=== PATIENT | female | born 1995 | race Caucasian/White ===

== ENCOUNTER 2016-12-09 22:14 | Emergency (ER) | payer MEDICAID, OTHER ==
[2016-12-09 23:44] VITALS: BP 122/61
--- NOTE | 2016-12-10 01:39 | ED Physician Documentation ---
Abdominal Pain - HISTORIAN Historian: patient - HPI Stated Complaint: States experiencing symptoms (nausea/heartburn/ cramping) Chief Complaint: Abdominal Pain Additonal Information: left lower quadrant pain x 1 week. Last period 1 week ago. 3 neg preg tests at home, 1 ? pos. Hx of left tubal preg. Onset: days ago (7) Duration: persistent Timing: still present Context: denies: out of country travel, bad food, recent trauma Severity: moderate Quality: aching, dull Front/Back of Body, Lg (Color): 1 - pain Associated Symptoms: nausea Exacerbated by: nothing Relieved by: other Further Comments: no - ROS CONST: no problems GI/: constipation CVS/RESP: none EYES/ENT: none MS/SKIN/LYMPH: none NEURO/PSYCH: none - SOCIAL HX Smoking History: cigarettes Alcohol Use: none Drug Use: none - FAMILY HX Family History: no significant history - PAST HX Past History: none Ischemic Bowel Risk Factors: none Other History: ectopic Surgeries/Procedures: other (tubal surgery) Immunizations: referred to PCP Home Medications: Ambulatory Orders Medication Instructions Recorded NK [NK] 12/09/16 Allergies/Adverse Reactions: Allergies Allergy/AdvReac Type Severity Reaction Status Date / Time acetaminophen AdvReac Vomiting Verified 12/09/16 22:32 [From Tylenol-Codeine #3] codeine phosphate AdvReac Vomiting Verified 12/09/16 22:32 [From Tylenol-Codeine #3] - VITAL SIGNS Vital Signs: Vital Signs Temp Pulse Resp BP Pulse Ox 98.4 F 114 H 18 122/61 98 12/09/16 22:14 12/09/16 23:43 12/09/16 23:43 12/09/16 23:43 12/09/16 22:14 - REVIEWED ASSESSMENTS Nursing Assessment Reviewed: Yes Vitals Reviewed: Yes Progress - Results/Orders Results/Orders: ucg neg - Progress Progress: pt stable entire time in er Critical Care Note - Critical Care Note Total Time (mins): 0 ED Results Lab/Radiology - Lab Results Lab Results: ucg neg - Radiology Radiology Impressions: none ordered - Orders Orders: ED Orders Category Date Time Status HCG QUANTITATIVE Routine Lab 12/09/16 23:30 Received HCG [URINE HCG] Routine Lab 12/09/16 22:44 Ordered URINALYSIS Routine Lab 12/09/16 22:29 Ordered Abdominal Pain Physical Exam - Physical Exam General Appearance: mild distress EENT: eye inspection normal, ENT inspection normal, pharynx normal, no signs of dehydration, DOUG, no nystagmus, TM's nml NECK: normal inspection, thyroid normal, supple RESPIRATORY: no resp distress, chest non-tender, breath sounds normal CVS: reg rate & rhythm, heart sounds normal, equal pulses, no murmur, no gallop , PMI nml, no JVD ABDOMEN: soft, normal bowel sounds, tenderness (left upper and lower quadrants) MALE GENITAL: normal genitalia BACK: normal inspection, no CVA tenderness SKIN: warm/dry, normal color EXTREMITIES: non-tender, normal range of motion, no evidence of injury, no edema NEURO: oriented X3, CN's nml as tested, motor nml, sensation nml, mood/affect nml, cognition normal Vital Signs: Vital Signs Temp Pulse Resp BP Pulse Ox 98.4 F 114 H 18 122/61 98 12/09/16 22:14 12/09/16 23:43 12/09/16 23:43 12/09/16 23:43 12/09/16 22:14 Discharge Clincal Impression: Abdominal pain Qualifiers: Abdominal location: left lower quadrant Qualified Code(s): R10.32 - Left lower quadrant pain Referrals: Karen Dunbar MD [Primary Care Provider] - 2 Days Home Medications: Ambulatory Orders NK [NK] 12/09/16 Comments: pt. wishes quant hcg - drawn Condition: Stable Disposition: 01 HOME, SELF-CARE Decision to Admit: NO Decision Time: 23:40
[2016-12-10 06:44] LABS: APPEARANCE,URINE CLEAR (CLEAR); COLOR,URINE AMBER (YELLOW); OCCULT BLOOD,URINE NEGATIVE (NEGATIVE); PH URINE 5.5 (5.0 - 8.0); URINE HCG NEGATIVE (NEGATIVE); UROBILINOGEN URINE 0.2 Eu (0.2-1.0)
== END 2016-12-09 23:15 | disposition home or self-care (01) ==
LOC: ED 22:14
DX: R10.32 Left lower quadrant pain (principal)
CPT/HCPCS: 81002; 81025; 84702

== ENCOUNTER 2018-01-03 17:33 | Emergency (ER) | payer BC, OTHER ==
--- NOTE | 2018-01-03 18:17 | ED Physician Documentation ---
Abdominal Pain - HISTORIAN Historian: patient - HPI Stated Complaint: abd pain Chief Complaint: Abdominal Pain Onset: hours (7 hours ago) Duration: constant Timing: still present Context: denies: out of country travel, bad food Severity: moderate Quality: aching, stabbing Associated Symptoms: nausea. denies: fever, chills, vomiting, coffee ground emesis, bloody emesis, diarrhea, bloody stools, grossly bloody stools Exacerbated by: movements Relieved by: remaining still - ROS CONST: no problems GI/: denies: black stools, bloody urine, bloody stools, dark urine, problems urinating - SOCIAL HX Smoking History: less than 1 pack/day Alcohol Use: none Drug Use: none - FAMILY HX Family History: no significant history - PAST HX Past History: none Ischemic Bowel Risk Factors: none Other History: ectopic (right) Surgeries/Procedures: other (oopherectomy, fracture wrist ORIF) Immunizations: referred to PCP - REVIEWED ASSESSMENTS Nursing Assessment Reviewed: Yes Vitals Reviewed: Yes <Richardson Encinas - Last Filed: 01/03/18 19:26> - HISTORIAN Historian: patient - HPI Duration: waxing, waning (she did say the pain improved for a while but she feels it is improved ) Associated Symptoms: nausea - ROS GI/: denies: constipation, black stools, bloody urine, bloody stools, dark urine, problems urinating MS/SKIN/LYMPH: denies: leg swelling, rash - SOCIAL HX Smoking History: less than 1 pack/day Alcohol Use: none Drug Use: none - PAST HX Past History: none Ischemic Bowel Risk Factors: none <Wilda Gandhi - Last Filed: 01/04/18 00:44> - HPI Additonal Information: Patient states that today at 11:30 she developed to RLQ abd pain. Constant in nature. Worse with movement. Laying still seems to help. Has been having some chills, some diaphorsis noted. Nausea noted but no diarrhea or vomiting. No blood in BM. Last BM this afternoon was normal. No UTI symptoms. Is post about eight weeks. Had a vaginal delivery with no complications. Had similar pain about 1 year and was told it was her appendix. Was given antibiotic and it got better. No surgery done. Has had an ectopic with oopherectomy. (Richardson Encinas) - PAST HX Home Medications: Ambulatory Orders Medication Instructions Recorded NK [NK] 12/09/16 Allergies/Adverse Reactions: Allergies Allergy/AdvReac Type Severity Reaction Status Date / Time acetaminophen AdvReac Vomiting Verified 01/03/18 18:09 [From Tylenol-Codeine #3] codeine phosphate AdvReac Vomiting Verified 01/03/18 18:09 [From Tylenol-Codeine #3] - VITAL SIGNS Vital Signs: Vital Signs Temp Pulse Resp BP Pulse Ox 98.6 F 72 16 110/68 99 01/03/18 20:05 01/03/18 20:05 01/03/18 20:05 01/03/18 20:05 01/03/18 20:05 Progress <Richardson Encinas - Last Filed: 01/03/18 19:26> <Wilda Gandhi - Last Filed: 01/04/18 00:44> - Progress Progress: 1930: results discussed and she does not want any other pain med other than vicodin. DG (Wilda Gandhi) ED Results Lab/Radiology <Richardson Encinas - Last Filed: 01/03/18 19:26> <Wilda Gandhi - Last Filed: 01/04/18 00:44> - Lab Results Lab Results: Lab Results 01/03/18 01/03/18 18:30 18:30 WBC 8.30 K/ul K/ul (4.00-12.00) RBC 4.58 M/ul M/ul (3.90-5.20) Hgb 12.1 g/dL g/dL (12.0-16.0) Hct 38.7 % % (34.5-46.5) MCV 84.6 fl fl (80.0-100.0) MCH 26.4 pg L pg (28.0-34.0) MCHC 31.2 g/dL g/dL (30.0-36.0) RDW 14.3 % % (11.3-14.3) Plt Count 280 K/mm3 K/mm3 (130-400) Neut % (Auto) 53.0 % % (39.0-79.0) Lymph % (Auto) 37.9 % % (16.0-50.0) [place] % (Auto) 2.5 % % (0.0-11.0) Eos % (Auto) 4.3 % % (0.0-6.8) Baso % (Auto) 0.3 (0.0-1.5) Neut # (Auto) 4.4 # k/uL # k/uL (1.4-7.7) Lymph # (Auto) 3.1 # k/uL # k/uL (0.6-4.0) Jess[place] # (Auto) 0.2 # k/uL # k/uL (0.0-0.9) Eos # (Auto) 0.4 # k/uL # k/uL (0.0-0.6) Baso # (Auto) 0.0 # k/uL # k/uL (0.0-0.5) Reactive Lymphs % 1.9 % % (0.0-5.0) Reactive Lymphs # 0.2 # k/uL # k/uL (0.0-0.8) Sodium 141 mmol/L mmol/L (136-145) Potassium 4.1 mmol/L mmol/L (3.5-5.1) Chloride 107 mmol/L mmol/L (98-107) Carbon Dioxide 23 mmol/L mmol/L (22-30) BUN 21 mg/dL H mg/dL (7-17) Creatinine 0.60 mg/dL mg/dL (0.52-1.04) Estimated Creat Clear 148 Est GFR ( Amer) > 60 (60 - ) Est GFR (Non-Af Amer) > 60 (60 - ) Glucose 105 mg/dL mg/dL (74-106) Calcium 9.3 mg/dL mg/dL (8.4-10.2) Total Bilirubin 0.9 mg/dL mg/dL (0.2-1.3) AST 16 U/L U/L (15-46) ALT 23 U/L U/L (13-69) Alkaline Phosphatase 80 U/L U/L (38-126) Total Protein 7.5 g/dL g/dL (6.3-8.2) Albumin 4.4 g/dL g/dL (3.5-5.0) - Radiology Radiology Impressions: CT abdomen and pelvis without contrast Date of study: January 03, 2018. CLINICAL HISTORY: RLQ PAIN X 6-7 HOURS (Hx) / ITS.REASON RLQ abd pain TECHNIQUE: 5 mm contiguous axial images of the abdomen and pelvis non contrast. FINDINGS: The lung bases are clear. Abdomen: The liver, pancreas and spleen are normal in appearance. The gallbladder is unremarkable. The kidneys are normal in size and surface contour. There is a 1 mm left renal lower pole parenchymal calculus. No hydronephrosis or perinephric stranding is evident. The aorta is normal in caliber. The small bowel is nondistended. There is no evidence of free air or free fluid. Pelvis: The colon is normal in appearance. The distal ureters and bladder are normal in appearance. There is no evidence of distal ureteral or intravesicular calculi. The appendix is normal. There is no evidence of free air or free fluid. The sigmoid colon and rectum are normal. The remaining pelvic structures are within normal limits and the bones of the pelvis are intact. IMPRESSION: 1 mm left renal parenchymal calculus without hydronephrosis or hydroureter. Normal-appearing appendix. Electronically signed on January 03, 2018 7:21:56 PM CDT by: Peg Dow (Wilda Gandhi) - Orders Orders: ED Orders Category Date Time Status Place IV Lock 1T Care 01/03/18 18:[address] ABD & PELVIS W/O CON Stat Exams 01/03/18 Completed CBC/PLATELET/DIFF Routine Lab 01/03/18 18:30 Completed CMP Routine Lab 01/03/18 18:30 Completed URINALYSIS Routine Lab 01/03/18 19:00 Ordered URINE HCG Routine Lab 01/03/18 19:00 Ordered 0.9 % Sodium Chloride [Normal Saline] 1,000 ml Med 01/03/18 19:38 Discontinued IV Q1H HYDROcodone /APAP 5/325 [[place] 5/325] Med 01/03/18 19:38 Discontinued 1 each PO NOW ONE Abdominal Pain Physical Exam - Physical Exam General Appearance: alert, moderate distress EENT: ENT inspection normal NECK: normal inspection, supple. No: lymphadenopathy RESPIRATORY: no resp distress, chest non-tender, breath sounds normal. No: wheezes, rales, rhonchi CVS: reg rate & rhythm, heart sounds normal, equal pulses, no murmur, no gallop ABDOMEN: soft, no organomegaly, tenderness (RLQ), decreased BS, McBurney's point tenderne, guarding (mild), other (Mild right CVA tenderness). No: rebound , distended BACK: CVA tenderness (R) (mild) SKIN: warm/dry, normal color EXTREMITIES: non-tender, no edema NEURO: oriented X3, mood/affect nml, cognition normal <Richardson Encinas - Last Filed: 01/03/18 19:26> - Physical Exam General Appearance: no acute distress, alert NECK: normal inspection RESPIRATORY: no resp distress, chest non-tender, breath sounds normal CVS: reg rate & rhythm, heart sounds normal, equal pulses, no murmur ABDOMEN: soft, tenderness, guarding (mild -- (mild pain with palpation on RLQ)) SKIN: warm/dry EXTREMITIES: non-tender NEURO: oriented X3 <Wilda Gandhi - Last Filed: 01/04/18 00:44> - Physical Exam Vital Signs: Vital Signs Temp Pulse Resp BP Pulse Ox 98.6 F 72 16 110/68 99 01/03/18 20:05 01/03/18 20:05 01/03/18 20:05 01/03/18 20:05 01/03/18 20:05 Discharge <Richardson Encinas - Last Filed: 01/03/18 19:26> Decision to Admit: NO Date of Decison to Admit: 01/03/18 Decision Time: 19:51 <Wilda Gandhi - Last Filed: 01/04/18 00:44> Clincal Impression: Renal calculus, left Referrals: Karen Dunbar MD [STAFF PHYSICIAN] - 2 Days Comments: 1. Increase fluids 2. Tylenol for pain 3. Monitor for blood in urine or increased pain 4. See PCP in 2-4 days 5. Return to ER for any increasing pain or other concerns she did refuse IV fluids and requested only Vicodin for pain aware of (Wilda Gandhi) Condition: Stable Disposition: 01 HOME, SELF-CARE
[2018-01-03 18:36] LABS: BASOPHILS % 0.3 (0.0-1.5); EOSINOPHILS % 4.3 % (0.0-6.8); MEAN CORPUSCULAR HEMOGLOBIN 26.4 pg (28.0-34.0); MEAN CORPUSCULAR VOLUME 84.6 fl (80.0-100.0); MONOCYTES % 2.5 % (0.0-11.0); NEUTROPHILS # 4.4 # k/uL (1.4-7.7)
[2018-01-03 18:41] LABS: eGFR (African) > 60; eGFR (Non-African) > 60
--- NOTE | 2018-01-03 19:29 | Diagnostic Imaging Report ---
Report Submission Date: January 03, 2018 7:21:56 PM CDT Patient Study Name: RACHELLE CABELLO Date: January 03, 2018 6:55:21 PM CDT Modality Type: CT\SR Gender: F Description: CT ABD PELVIS W/O CO : 95 Institution: [facility] Physician: TITUS GILES CT abdomen and pelvis without contrast Date of study: January 03, 2018. CLINICAL HISTORY: RLQ PAIN X 6-7 HOURS (Hx) / ITS.REASON RLQ abd pain TECHNIQUE: 5 mm contiguous axial images of the abdomen and pelvis non contrast. FINDINGS: The lung bases are clear. Abdomen: The liver, pancreas and spleen are normal in appearance. The gallbladder is unremarkable. The kidneys are normal in size and surface contour. There is a 1 mm left renal lower pole parenchymal calculus. No hydronephrosis or perinephric stranding is evident. The aorta is normal in caliber. The small bowel is nondistended. There is no evidence of free air or free fluid. Pelvis: The colon is normal in appearance. The distal ureters and bladder are normal in appearance. There is no evidence of distal ureteral or intravesicular calculi. The appendix is normal. There is no evidence of free air or free fluid. The sigmoid colon and rectum are normal. The remaining pelvic structures are within normal limits and the bones of the pelvis are intact. IMPRESSION: 1 mm left renal parenchymal calculus without hydronephrosis or hydroureter. Normal-appearing appendix. Electronically signed on January 03, 2018 7:21:56 PM CDT by: Peg PIPER
[2018-01-03] MEDS ORDERED: HYDROcodone /APAP 5/325 1 EACH TABLET PO ONE (19:38)
[2018-01-03] MEDS ORDERED: 0.9 % SODIUM CHLORIDE 1,000 ML IV ONE (19:38)
[2018-01-03 20:10] VITALS: BP 110/68
[2018-01-04 08:15] LABS: APPEARANCE,URINE CLEAR (CLEAR); COLOR,URINE YELLOW (YELLOW); OCCULT BLOOD,URINE NEGATIVE (NEGATIVE)
[2018-01-04 08:16] LABS: PH URINE 6.5 (5.0 - 8.0); URINE HCG NEGATIVE (NEGATIVE)
== END 2018-01-03 20:05 | disposition home or self-care (01) ==
LOC: ED 17:33
DX: N20.0 Calculus of kidney (principal)
CPT/HCPCS: 74176; 80053; 81002; 81025; 85025; A9270; S1016

== ENCOUNTER 2019-01-26 21:55 | Emergency (ER) | payer SELFPAY ==
[2019-01-26] MEDS ORDERED: NORMAL SALINE 1,000 ML IV.SOLN IV ONE ×2 (22:15)
[2019-01-26] MEDS ORDERED: KETOROLAC TROMETHAMINE 30 MG/1ML VIAL ONE (22:15)
[2019-01-26] MEDS ORDERED: MAGNESIUM CITRATE 296 ML BOTTLE PO ONE (22:15)
[2019-01-26] MEDS ORDERED: ONDANSETRON HCL/PF 4 MG/ 2ML VIAL ONE (22:15)
[2019-02-05 17:40] LABS: BASOPHILS % 0.5 % (0.0-1.5); NEUTROPHILS # 3.2 # k/uL (1.4-7.7); eGFR (Non-African) > 60
[2019-02-05 18:16] LABS: APPEARANCE,URINE CLEAR (CLEAR); COLOR,URINE YELLOW (YELLOW); OCCULT BLOOD,URINE T (NEGATIVE)
== END 2019-01-27 00:55 ==
LOC: ED 21:55
DX: K59.00 Constipation, unspecified (principal); G44.209 Tension-type headache, unspecified, not intractable; R31.9 Hematuria, unspecified
CPT/HCPCS: 36415; 74018; 80053; 81002; 82150; 83690; 85025; 96374; 96375; 99283; 99284; J1885; J2405; J7030; S1016